=== PATIENT | female | born 1990 | race African-American/Black ===

== ENCOUNTER 2016-11-19 18:20 | Emergency (ER) | payer OTHER ==
[~2016-11-19] VITALS: Ht 160 cm; Wt 84.4 kg
[2016-11-19 18:40] VITALS: BP 103/56
--- NOTE | 2016-11-19 18:57 | PHYS DOC ---
Past Medical History Additional Past Medical Histor: SAB 1 Alcohol Use: None Adult General Chief Complaint Chief Complaint: near SYNCOPE HPI HPI Patient is a 26 year old female who presents with standing in line at [facility] just prior to arrival felt warm flushed and felt like she was given a pass out but did not actually lose consciousness. Denies any abdominal pain, is 12 weeks has had care and an ultrasound confirming an IUP. Occasional nausea and vomiting no diarrhea no dysuria or frequency or fever. Denies any chest pain or shortness of breath. Denies any leg pain or swelling. Review of Systems Review of Systems Constitutional: Denies fever or chills [] Eyes: Denies change in visual acuity, redness, or eye pain [] HENT: Denies nasal congestion or sore throat [] Respiratory: Denies cough or shortness of breath [] Cardiovascular: No additional information not addressed in HPI [] GI: Denies abdominal pain, nausea, vomiting, bloody stools or diarrhea [] : Denies dysuria or hematuria [] Musculoskeletal: Denies back pain or joint pain [] Integument: Denies rash or skin lesions [] Neurologic: Denies headache, focal weakness or sensory changes [] Endocrine: Denies polyuria or polydipsia [] Current Medications Current Medications Current Medications Medications (Trade) Dose Ordered Sig/Vinh Start Time Stop Time Status Last Admin Dose Admin Sodium Chloride 1,000 ml @ 1,000 mls/hr 1X ONCE 11/19/16 19:00 11/19/16 19:59 DC 11/19/16 19:07 1,000 MLS/HR Allergies Allergies Allergies Coded Allergies Type Severity Reaction Last Updated Verified No Known Drug Allergies 11/19/16 No Physical Exam Physical Exam Constitutional: Well developed, well nourished, no acute distress, non-toxic appearance. [] HENT: Normocephalic, atraumatic, bilateral external ears normal, oropharynx moist, no oral exudates, nose normal. [] Eyes: PERRLA, EOMI, conjunctiva normal, no discharge. [] Neck: Normal range of motion, no tenderness, supple, no stridor. [] Cardiovascular:Heart rate regular rhythm, no murmur [] Lungs & Thorax: Bilateral breath sounds clear to auscultation [] Abdomen: Bowel sounds normal, soft, no tenderness, no masses, no pulsatile masses. [] Skin: Warm, dry, no erythema, no rash. [] Back: No tenderness, no CVA tenderness. [] Extremities: No tenderness, no cyanosis, no clubbing, ROM intact, no edema. [] Neurologic: Alert and oriented X 3, normal motor function, normal sensory function, no focal deficits noted. [] Psychologic: Affect normal, judgement normal, mood normal. [] Current Patient Data Vital Signs Vital Signs Date Time Temp Pulse Resp B/P (MAP) Pulse Ox O2 Delivery O2 Flow Rate FiO2 11/19/16 18:40 98.4 80 14 103/56 (72) 100 Room Air 98.4 Lab Values Laboratory Tests Test 11/19/16 17:41 11/19/16 20:33 POC Urine HCG, Qualitative Hcg positive (Negative) POC Hemoglobin 11.2 g/dL (12-15) L POC Hematocrit 33 % (36-40) L POC Sodium 138 mmol/L (135-145) POC Potassium 3.6 mmol/L (3.5-5.0) POC Chloride 103 mmol/L (98-110) POC Total CO2 24 mmol/L (23-32) Anion Gap 16 mmol/L (6-14) H POC Blood Urea Nitrogen 11 mg/dL (8-26) POC Creatinine 0.5 mg/dL (0.5-1.4) Glucose Level 94 mg/dL (70-99) POC Ionized Calcium (Maritza) 1.21 mmol/L (1.13-1.32) Laboratory Tests 11/19/16 20:33 EKG EKG EKG normal sinus rhythm rate of 81 no STEMI QTC is normal. My interpretation. [] Radiology/Procedures Radiology/Procedures [] Course & Med Decision Making Course & Med Decision Making Pertinent Labs and Imaging studies reviewed. (See chart for details) [I-STAT was unremarkable. Patient was given IV fluids felt improved EKG looked fine heart tones were above 150.] Dragon Disclaimer Dragon Disclaimer This electronic medical record was generated, in whole or in part, using a voice recognition dictation system. Departure Departure Impression: Primary Impression: Near syncope Disposition: HOME, SELF-CARE Condition: STABLE Referrals: NO PCP (PCP) Patient Instructions: Near-Syncope, [id number] Additional Instructions: Please increase her fluid intake. ROMA LOVE MD Nov 19, 2016 18:57
[2016-11-19] MEDS ORDERED: IV NORMAL SALINE 1000ML BAG 1,000 ML IV ONE (19:00)
[2016-11-19 20:37] LABS: POTASSIUM ISTAT 3.6 mmol/L (3.5-5.0)
--- NOTE | 2016-11-20 09:40 | EKG ---
[facility] [address] [place] [address] Test Date: 2016-11-19 Test Time: 18:41:08 Pat Name: TOMÁS RODRIGUEZ Department: Room: Gender: F [employer]mal Intelligence Analyst: : 1990 Requested By: ROMA LOVE Order Number: [id number] Reading MD: Remi Mayorga Measurements Intervals [place] Rate: 81 P: 0 AL: 146 QRS: -7 QRSD: 82 T: 9 QT: 368 QTc: 428 Interpretive Statements SINUS RHYTHM Electronically Signed On 11-22-2016 11:11:03 CDT by Remi Mayorga
== END 2016-11-19 20:49 | disposition home or self-care (01) ==
LOC: ER 18:20
DX: O26.891 Other specified pregnancy related conditions, first trimester (principal); R55 Syncope and collapse
CPT/HCPCS: 80047; 81025; 93005; 96360; 99284; J7030